=== PATIENT | female | born 1965 | race Caucasian/White ===

== ENCOUNTER 2018-05-01 18:53 | Emergency (ER) | payer BC ==
--- NOTE | 2018-05-01 19:24 | EDM.PDOC ---
ED HPI GENERAL MEDICAL PROBLEM - General Chief Complaint: Chest Pain Stated Complaint: CHEST PRESSURE/PINCHING Time Seen by Provider: 05/01/18 19:06 Source of Information: Reports: Patient, RN Notes Reviewed - History of Present Illness INITIAL COMMENTS - FREE TEXT/NARRATIVE: 53 year old female has had some mid sternal chest pain today, off and on, not severe, just an annoying ache without radiation. Does a lot of heavy lifting with her work but no known fall or injury. No cough, fever or chills. No cardiac hx. Does not smoke. pain does not radiate. Chest Pain Score (Numeric/FACES): 4 - Related Data Allergies Allergy/AdvReac Type Severity Reaction Status Date / Time No Known Allergies Allergy Verified 05/01/18 18:57 Home Meds: Home Meds Aspirin [Adult Low Dose Aspirin EC] 1 tab PO DAILY 07/25/13 [History] Calcium Carbonate [Calcium] 600 mg PO BID 05/01/18 [History] Ergocalciferol (Vitamin D2) [Vitamin D2] 2,000 unit PO DAILY 05/01/18 [History] Multivitamin [Daily Edis] 1 each PO DAILY 05/01/18 [History] Pantoprazole Sodium [Protonix] 20 mg PO DAILY 05/01/18 [History] Past Medical History Gastrointestinal History: Reports: GERD PHLEBOTOMIST PRN History: Reports: Other (See Below) Other PHLEBOTOMIST PRN History: csection - Past Surgical History GI Surgical History: Reports: Colonoscopy Social & Family History - Tobacco Use Smoking Status *Q: Never Smoker - Caffeine Use Caffeine Use: Reports: Soda - Recreational Drug Use Recreational Drug Use: No ED ROS GENERAL - Review of Systems Review Of Systems: See Below Constitutional: Denies: Fever, Chills, Diaphoresis HEENT: Denies: Sinus Problem, Throat Pain Respiratory: Denies: Shortness of Breath, Pleuritic Chest Pain Cardiovascular: Reports: Chest Pain. Denies: Palpitations GI/Abdominal: Denies: Abdominal Pain, Nausea, Vomiting Musculoskeletal: Denies: Shoulder Pain, Arm Pain, Back Pain Skin: Reports: No Symptoms Neurological: Reports: No Symptoms ED EXAM, GENERAL - Physical Exam Exam: See Below General Appearance: Alert, No Apparent Distress Eye Exam: Bilateral Eye: PERRL Throat/Mouth: Normal Inspection, Normal Oropharynx Head: Atraumatic Neck: Supple Respiratory/Chest: No Respiratory Distress, Lungs Clear, Normal Breath Sounds, Other (there is tenderness of the mid and lower L sternal border) Cardiovascular: Regular Rate, Rhythm GI/Abdominal: Soft, Non-Tender Extremities: Normal Range of Motion. No: Pedal Edema, Leg Pain Neurological: Alert, Oriented, No Motor/Sensory Deficits Skin Exam: Warm, Dry, Normal Color EKG INTERPRETATION EKG Date: 05/01/18 Rhythm: NSR [place]: Normal P-Wave: Present QRS: Other (q waves inf leads) ST-T: Other (T wave inversion lead III, very mild st elevation lead III) Course - Vital Signs Last Recorded V/S: Last Vital Signs Temp 98.1 F 05/01/18 19: Pulse 70 05/01/18 19:01 Resp 23 H 05/01/18 19:01 BP 137/75 05/01/18 19:01 Pulse Ox 98 05/01/18 19:01 - Orders/Labs/Meds Labs: Laboratory Tests 05/01/18 Range/Units 19:28 Troponin I < 0.017 (0.00-0.056) ng/mL - Re-Assessments/Exams Free Text/Narrative Re-Assessment/Exam: 05/03/18 11:28 EKG, trop. normal, NSR, no ectopy, she does a lot of lifting of heavy bulky stuff with her work, she has chest wall tenderness, No hx of CAD or other major risk factors. discharge instr. as documented. Departure - Departure Time of Disposition: 20:28 Disposition: Home, Self-Care 01 Condition: Fair Clinical Impression: Chest wall pain, Atypical chest pain Instructions: Chest Wall Pain, [id number], Nonspecific Chest Pain, Easy-to- Read Referrals: Aneudy Garcia MD [Primary Care Provider] - Forms: ED Department Discharge, ED Return to Work/School Form Additional Instructions: no heavy lifting, you can alternate ice and heat to lower anterior chest as needed, tylenol up to 3 times daily for discomfort, follow up in [address] Dewitt for recheck, call for appt. tomorrow morning, return to ED if symptoms worsening in any way.
--- NOTE | 2018-05-02 06:35 | CR ---
Chest: Portable view of the chest was obtained. Comparison: No prior chest x-ray is available. Heart size and mediastinum are within normal limits for portable technique. Lungs are clear. Bony structures are grossly intact. Impression: 1. Nothing acute is seen on portable chest x-ray. Diagnostic code #1
== END 2018-05-01 21:08 | disposition home or self-care (01) ==
LOC: JD.ED 18:53
DX: R07.89 Other chest pain (principal); K21.9 Gastro-esophageal reflux disease without esophagitis; Z79.82 Long term (current) use of aspirin; Z79.899 Other long term (current) drug therapy
CPT/HCPCS: 36415; 71045; 71045-26; 84484; 93005; 93010; 99284; 99285-25